=== PATIENT | male | born 1955 | race African-American/Black ===

== ENCOUNTER → 2017-03-27 | Outpatient (CLI) | payer MEDICAID ==
[~2017-03-27] VITALS: Ht 190.5 cm; Wt 154.0 kg
[~2017-03-27] MED LIST: ACYC800T PO; ASPI-989 PO; BACL10TA PO; CHOL10002 PO; CITA20TA9 PO; FAMO20 PO; GABA-531 PO; HYDR-309 PO; HYDR30CR3 TP; LEVE500T53 PO; LOSA25TA2 PO; OMEP20 PO; POTA8TAB4 PO; PRAV20TA4 PO; SERT100T12 PO; TRAZ-144 PO
[2017-03-27 11:44] VITALS: BP 170/80
== END | disposition home or self-care (01) ==
LOC: SRCNTR 11:37
PROVIDERS: ATTEND Internal Medicine Clinical Cardiac Electrophysiology
DX: Z45.018 Encounter for adjustment and management of other part of cardiac pacemaker (principal)
CPT/HCPCS: G0463

== ENCOUNTER → 2017-05-08 | Outpatient (CLI) | payer MEDICAID ==
[~2017-05-08] VITALS: Ht 190.5 cm; Wt 153.0 kg
[2017-05-08 11:05] VITALS: BP 128/58
== END | disposition home or self-care (01) ==
LOC: SRCNTR 11:04
PROVIDERS: ATTEND Internal Medicine Clinical Cardiac Electrophysiology
DX: Z45.02 Encounter for adjustment and management of automatic implantable cardiac defibrillator (principal); I10 Essential (primary) hypertension; I48.91 Unspecified atrial fibrillation; Z79.82 Long term (current) use of aspirin
CPT/HCPCS: G0463